=== PATIENT | female | born 2000 | race Caucasian/White ===

== ENCOUNTER 2022-10-14 09:44 | Emergency (ER) | payer OTHER ==
[2022-10-14] MEDS ORDERED: Sodium Chloride 0.9% 10 ML Syringe FLUSH PRN (10:11)
[2022-10-14 10:48] LABS: HEMATOCRIT 43.5 % (34.2-48.2); HEMOGLOBIN 14.8 g/dL (11.4-15.5); MEAN CORPUSCULAR HEMOGLOBIN 31.2 pg (23.9-33.9); MEAN CORPUSCULAR VOLUME 91.8 fL (76.7-100.5); MEAN PLATELET VOLUME 7.4 fL (7.1-12.4); PLATELET COUNT,PLT 428 x10(3)uL (151-488); RED BLOOD CELL COUNT 4.74 x10(6)uL (3.60-5.20)
[2022-10-14 10:51] LABS: CARBON DIOXIDE,CO2 26 mmol/L (21-32); CHLORIDE,CL 105 mmol/L (100-110); POTASSIUM,K 4.3 mmol/L (3.5-5.3); SODIUM,NA 143 mmol/L (135-145)
[2022-10-14 10:52] LABS: BLOOD UREA NITROGEN,BUN 13 mg/dL (7-18); BUN/CREATININE RATIO 18.6 (9-20); CALCIUM 8.7 mg/dL (8.6-10.2); CREATININE 0.7 mg/dL (0.55-1.02); EST CRCL DRUG DOSING (CG) 107.01 mL/min; ESTIMATED GFR 124 mL/min (>60); GLUCOSE RANDOM 128 mg/dL (80-116)
[2022-10-14 10:55] LABS: C-REACTIVE PROTEIN 2.9 mg/dL (0.5-0.9)
[2022-10-14 10:57] LABS: ALANINE AMINOTRANSFERASE,ALT 38 U/L (12-36); ALBUMIN 4.3 g/dL (3.5-5.2); ALKALINE PHOSPHATASE 78 IU/L (56-112); ASPARTATE AMNIOTRANSFERASE,AST 22 IU/L (5-25); BILIRUBIN TOTAL 0.5 mg/dL (0.1-1.3); MAGNESIUM 1.8 mg/dL (1.8-2.5); PROTEIN TOTAL,TP 8.5 g/dL (6.0-8.0)
[2022-10-14] MEDS: Promethazine 12.5 MG in Sodium Chloride 0.9% 50 ML IV ONE (10:57)
[2022-10-14] MEDS: Sodium Chloride 0.9% 1,000 ML IV ONE (10:57)
[2022-10-14 11:02] LABS: LYMPHOCYTES PERCENT MAN 6 % (13-37); MONOCYTES PERCENT MAN 5 % (4-12); SEG NEUTROPHILS PERCENT MAN 89 % (46-82)
[2022-10-14 11:15] LABS: BILIRUBIN,URINE NEGATIVE (NEGATIVE); GLUCOSE,URINE NORMAL (NORMAL); KETONES,URINE 15 mg/dL (NEGATIVE); LEUKOCYTE ESTERASE,URINE NEGATIVE (NEGATIVE); NITRITE,URINE NEGATIVE (NEGATIVE); OCCULT BLOOD,URINE NEGATIVE (NEGATIVE); PROTEIN,URINE NEGATIVE (NEGATIVE); UROBILINOGEN,URINE NORMAL (NEGATIVE)
[2022-10-14 11:22] LABS: APPEARANCE,URINE CLEAR (CLEAR); BACTERIA,URINE FEW (NS); COLOR,URINE YELLOW (YELLOW); SQUAMOUS EPITHELIAL CELLS,UR FEW (NS,R,O); WBC,URINE 0-5 (0-5)
[2022-10-14] MEDS: Ondansetron 4 MG/2 ML SDV IVPUSH ONE (12:39)
== END 2022-10-14 12:45 | disposition home or self-care (01) ==
LOC: FB.ED 09:44
DX: B34.9 Viral infection, unspecified (principal); R11.2 Nausea with vomiting, unspecified; R19.7 Diarrhea, unspecified; E86.0 Dehydration
CPT/HCPCS: 36415; 80053; 81001; 81025; 83690; 83735; 85025; 86140; 96361; 96365; 96375; 99283; 99284-25; J2405; J2550; J3490; J7030